=== PATIENT | male | born 1995 | race Caucasian/White ===

== ENCOUNTER 2021-11-29 17:57 | Emergency (ER) | payer BC ==
[~2021-11-29] VITALS: Ht 177.8 cm; Wt 122.5 kg
[2021-11-29] MEDS ORDERED: PERCOCET 5-3251 EACH PO (21:07)
== END 2021-11-29 21:43 | disposition home or self-care (01) ==
LOC: ER 17:57
DX: S42.495A Other nondisplaced fracture of lower end of left humerus, initial encounter for closed fracture (principal); S50.02XA Contusion of left elbow, initial encounter; W22.8XXA Striking against or struck by other objects, initial encounter; Y93.89 Activity, other specified; Y92.832 Beach as the place of occurrence of the external cause; Y99.8 Other external cause status

== ENCOUNTER 2021-12-03 11:21 | Outpatient (CLI) | payer BC ==
[~2021-12-03 11:21] MED LIST: PERCOCET 5-3251 EACH PO
== END 2021-12-03 11:23 | disposition home or self-care (01) ==
LOC: RAD 11:21
PROVIDERS: ATTEND Orthopaedic Surgery
DX: S42.362A Displaced segmental fracture of shaft of humerus, left arm, initial encounter for closed fracture (principal)

== ENCOUNTER → 2021-12-12 | Outpatient (CLI) | payer BC | END | disposition home or self-care (01) | LOC: RAD 09:05 | PROVIDERS: ATTEND Orthopaedic Surgery | DX: S42.362A Displaced segmental fracture of shaft of humerus, left arm, initial encounter for closed fracture (principal) ==

== ENCOUNTER 2022-01-02 13:28 | Outpatient (CLI) | payer BC | END 2022-01-02 13:37 | disposition home or self-care (01) | LOC: RAD 13:28 | PROVIDERS: ATTEND Orthopaedic Surgery | DX: S42.362A Displaced segmental fracture of shaft of humerus, left arm, initial encounter for closed fracture (principal) ==

== ENCOUNTER 2022-01-07 13:53 | Outpatient (CLI) | payer BC | END 2022-01-07 14:09 | disposition home or self-care (01) | LOC: LAB 13:53 | PROVIDERS: ATTEND Orthopaedic Surgery | DX: D68.9 Coagulation defect, unspecified (principal) ==

== ENCOUNTER 2022-01-08 08:22 | Day surgery (SDC) | payer BC | END 2022-01-08 18:20 | disposition home or self-care (01) | LOC: CIR.AMB 08:22 | PROVIDERS: ATTEND Orthopaedic Surgery | DX: S42.023A Displaced fracture of shaft of unspecified clavicle, initial encounter for closed fracture (principal) ==

== ENCOUNTER 2022-02-21 12:19 | Outpatient (CLI) | payer BC | END 2022-02-21 12:23 | disposition home or self-care (01) | LOC: RAD 12:19 | PROVIDERS: ATTEND Orthopaedic Surgery | DX: S42.362D Displaced segmental fracture of shaft of humerus, left arm, subsequent encounter for fracture with routine healing (principal) ==

== ENCOUNTER 2022-04-11 08:39 | Outpatient (CLI) | payer BC | END 2022-04-11 08:49 | disposition home or self-care (01) | LOC: RAD 08:39 | PROVIDERS: ATTEND Orthopaedic Surgery | DX: S42.362D Displaced segmental fracture of shaft of humerus, left arm, subsequent encounter for fracture with routine healing (principal) ==

== ENCOUNTER 2022-06-13 09:01 | Outpatient (CLI) | payer BC | END 2022-06-13 09:08 | disposition home or self-care (01) | LOC: RAD 09:01 | PROVIDERS: ATTEND Orthopaedic Surgery | DX: S42.362D Displaced segmental fracture of shaft of humerus, left arm, subsequent encounter for fracture with routine healing (principal) ==